=== PATIENT | female | born 1975 | race Caucasian/White ===

== ENCOUNTER → 2016-09-11 | Outpatient (CLI) | payer BC ==
[~2016-09-11] MED LIST: NORCO 5-325 MG1 TAB PO
== END | disposition disaster alternative care site (69) ==
LOC: GRAD 14:39
DX: R10.9 Unspecified abdominal pain (principal)

== ENCOUNTER 2017-03-04 01:35 | Emergency (ER) | payer BC ==
--- NOTE | ~2017-03-04 | ER ---
[facility] 42 [facility] [address] ROOM: [place] [id number] LOCATION: [facility] ADMIT DATE: 03/04/2017 ER/Outpatient Report DISCHARGE DATE: FAMILY PHYSICIAN: Santo Philippe MD ATTENDING PHYSICIAN: Mukesh Torres Time of Arrival: 0138 hours Time of Evaluation: 0148 hours CHIEF COMPLAINT: Left-sided pain. HISTORY OF PRESENT ILLNESS: The patient is a 42-year-old female who presents to the emergency department today with chief complaint of left-sided pain. She reports this started at 2330 hours. She reports she had some nausea and 1 episode of vomiting with some streaks of blood. She denies any diarrhea or constipation. No fevers or chills. No urinary frequency, urgency, or painful urination. Pain is 8/10 in severity, it is a ripping-type pain. PAST MEDICAL HISTORY: None. PAST SURGICAL HISTORY: None. SOCIAL HISTORY: The patient denies any tobacco, alcohol, or illicit drug use. ALLERGIES: NO KNOWN DRUG ALLERGIES. MEDICATIONS: None. PRIMARY CARE DOCTOR: Dr. Santo Philippe. REVIEW OF SYSTEMS: All systems are reviewed by myself and are negative with the exception of those discussed in the HPI and past medical history. PHYSICAL EXAMINATION: VITAL SIGNS: Weight 111.9 kg, blood pressure 134/92, pulse 94, respiratory rate 16, temperature 97.6, oxygen saturation 98% on room air. PATIENT'S NAME: [facility] 42 Y [address] ROOM: [place] [id number] LOCATION: [facility] ADMIT DATE: 03/04/2017 ER/Outpatient Report DISCHARGE DATE: FAMILY PHYSICIAN: Santo Philippe MD ATTENDING PHYSICIAN: Mukesh Torres GENERAL: The patient is a 42-year-old female, appears of stated age, obese, in mild acute distress secondary to pain. HEENT: Normocephalic, atraumatic. Pupils are equal, round, and reactive to light and accommodation. Extraocular motions are intact. Oropharynx is clear. NECK: Supple. There is no nuchal rigidity. CARDIOVASCULAR: Regular rate and rhythm. No murmurs, rubs, or gallops. LUNGS: Clear to auscultation bilaterally. No wheezes, rales, or rhonchi. ABDOMEN: Soft, nontender, and nondistended. No rebound. No rigidity. No guarding. MUSCULOSKELETAL: The patient moves all 4 extremities. SKIN: Warm and dry. There are no rashes or lesions noted. LABORATORY DATA AND X-RAYS: EKG is obtained, is interpreted by myself at 0156 hours shows sinus rhythm with a rate of 90. Left axis deviation. Normal interval. No ST elevation, ST depression, or T-wave inversions. CBC is normal. H. pylori is negative. Serum hCG is less than 1.0. Coags are normal. CMP is unremarkable. LFTs normal. Mag is normal. Lipase is normal. Cardiac enzymes are normal. CT scan of the chest is obtained, read by radiology shows no evidence of PE. CT scan of the abdomen and pelvis are normal. D-dimer is elevated at 1.39. Urinalysis 500 leukocyte esterase, 10 blood, 20-50 WBCs, it is contaminated with 20-50 epithelials, a few bacteria. 2-hour cardiac enzymes are normal. IMPRESSION: 1. Acute nonsurgical left upper quadrant abdominal pain, unclear etiology. 2. Hematemesis x1. 3. Initial visit. EMERGENCY DEPARTMENT COURSE: The patient was brought back to the examination room. Seen and evaluated by myself. IV is established. Laboratory analysis and imaging are obtained as described above. The patient is given a liter of normal saline. She is given 4 mg of Zofran IV as well as 5 mg of morphine IV. This was resulted in significant improvement in the patient's symptoms. The patient's abdominal exam is repeated. She continues to have a nonsurgical abdominal exam this time and actually no tenderness to palpation. The patient has not had any active vomiting while here in the emergency department. I have recommended omeprazole at home. I have discussed rest. I have discussed return to care instructions including worsening symptoms or any other concerns return to the emergency department as soon as possible. I have discussed follow up with the Gastroenterology and primary care in 2 days for re-evaluation for consideration of possible endoscopy. The patient is agreeable without further questions. PATIENT'S NAME: SERG MCCRACKEN [facility] AGE: 42 Y [address] ROOM: [place] [address] LOCATION: [facility] ADMIT DATE: 03/04/2017 ER/Outpatient Report DISCHARGE DATE: FAMILY PHYSICIAN: Santo Philippe MD ATTENDING PHYSICIAN: Mukesh Torres DISPOSITION: The patient is discharged home in good condition. DO AMELIE MARADIAGA/modl /[id number] d: 03/04/17 0559 t: 03/05/17 1848, OUTPATIENT REPORT
[2017-03-04 01:55] LABS: BASOPHIL # 0.1 K/uL (0.0-0.2); BASOPHIL % 0.5 %; EOSINOPHIL # 0.1 K/uL (0.0-0.5); EOSINOPHIL % 0.9 %; HEMATOCRIT 42.1 % (33.0-46.0); HEMOGLOBIN 14.7 g/dL (10.0-15.0); IMMATURE GRANULOCYTE % 0.2 %; LYMPHOCYTE # 3.5 K/uL (0.8-4.0); LYMPHOCYTE % 35.3 %; MCH 32.2 pg (27.0-34.0); MCHC 34.9 gm/dL (32.0-36.5); MCV 92.1 fl (83.0-98.0); MONOCYTE # 0.6 K/uL (0.0-1.0); MONOCYTE % 5.7 %; MPV 9.2 fl (9.4-12.4); NEUTROPHIL # (ANC) 5.6 K/uL (1.8-7.8); NEUTROPHIL % 57.4 %; NRBC % 0 /100WBC (0-0.00); PLATELET COUNT 305 K/uL (150-450); RBC 4.57 M/uL (3.50-5.50); RDW-CV 12.6 % (11.9-14.6); WBC 9.8 K/uL (4.0-11.0)
[2017-03-04 02:13] LABS: ALBUMIN 3.3 gm/dL (3.5-5.0); ALK PHOS 94 IU/L (33-138); ALT 19 IU/L (12-78); ANION GAP 10.9 (10.0-19.0); AST 12 IU/L (10-40); BLOOD UREA NITROGEN 12 mg/dL (6-24); CALCIUM 8.4 mg/dL (8.5-10.5); CHLORIDE 109 mMol/L (96-110); CO2 23 mMol/L (22-32); CPK 70 IU/L (21-215); CREATININE 0.6 mg/dL (0.5-1.1); POTASSIUM 3.9 mMol/L (3.7-5.1); SODIUM 139 mMol/L (135-145); TOTAL BILIRUBIN 0.5 mg/dL (0.0-1.5); TOTAL PROTEIN 7.4 g/dL (6.0-8.4)
[2017-03-04 02:17] LABS: INR - (THERAPEUTIC) 0.94 (0.92-1.07); PROTIME 9.9 SECONDS (9.8-11.4); PTT 28 SECONDS (25-32)
[2017-03-04 03:40] LABS: BILIRUBIN URINE NEGATIVE (NEGATIVE); BLOOD URINE 10 /UL (NEGATIVE); COLOR URINE YELLOW (YELLOW); GLUCOSE URINE NEGATIVE (NEGATIVE); KETONE URINE NEGATIVE (NEGATIVE); LEUKOCYTES URINE 500 /UL (NEGATIVE); NITRITE URINE NEGATIVE (NEGATIVE); PROTEIN URINE NEGATIVE (NEGATIVE); SPEC GRAVITY URINE 1.015 (1.003-1.035); TURBIDITY URINE 1+ (CLEAR); UROBILINOGEN URINE NORMAL (NORMAL)
[2017-03-04 03:54] LABS: BACTERIA URINE FEW (NEGATIVE); EPITHELIAL URINE 20-50 #/HPF (NEGATIVE); RBC URINE 0-2 #/HPF (NEGATIVE); WBC URINE 20-50 #/HPF (NEGATIVE)
[2017-03-04 04:24] LABS: CPK 62 IU/L (21-215)
== END 2017-03-04 05:00 | disposition disaster alternative care site (69) ==
LOC: GMED 01:35
PROVIDERS: Emergency Medicine
DX: R10.12 Left upper quadrant pain (principal); K92.0 Hematemesis
CPT/HCPCS: J2270; J2405; J7030; Q9967